=== PATIENT | female | born 1990 | race Asian ===

== ENCOUNTER 2018-04-25 03:50 | Inpatient (IN) | payer SELFPAY ==
[~2018-04-25] VITALS: Ht 160 cm; Wt 72.6 kg
[2018-04-25] MEDS: LACTATED RINGERS 1,000 ML IV SCH ×2 (05:00→13:28)
[2018-04-25] MEDS ORDERED: PREN-380 PO (05:05)
[2018-04-25] MEDS ORDERED: NALBUPHINE 10 MG/ML AMP IVP PRN (05:10)
[2018-04-25] MEDS ORDERED: PROMETHAZINE 25 MG/ML VIAL IVP PRN (05:10)
[2018-04-25] MEDS ORDERED: AMPICILLIN 2,000 MG in NACL 0.9% MINI-BAG PLUS 100 ML IV SCH (05:10)
[2018-04-25] MEDS ORDERED: METHYLERGONOVINE 0.2 MG/ML AMP IM PRN ×2 (05:10→21:25)
[2018-04-25] MEDS ORDERED: CARBOPROST 250 MCG/ML AMP IM PRN (05:10)
[2018-04-25] MEDS ORDERED: AMPICILLIN 2,000 MG VIAL ONE (05:24)
[2018-04-25 05:35] LABS: BASOPHILS % (AUTO) 0.3 % (0.0-2.0); EOSINOPHILS # (AUTO) 0.1 K/uL (0-0.4); EOSINOPHILS % (AUTO) 1.2 % (0.0-4.0); HEMATOCRIT 40.5 % (36-48); HEMOGLOBIN 13.8 g/dL (12.0-16.0); LYMPHOCYTES % (AUTO) 18.1 % (20.5-51.1); MEAN CORPUSCULAR HEMOGLOBIN 32 pg (27-31); MEAN CORPUSCULAR HGB CONC 34 g/dL (33-37); MEAN CORPUSCULAR VOLUME 93.3 fL (80-94); MONOCYTES # (AUTO) 0.9 K/uL (0.8-1.0); MONOCYTES % (AUTO) 8.3 % (1.7-9.3); NEUTROPHILS # (AUTO) 7.9 K/uL (1.8-7.7); NEUTROPHILS % (AUTO) 72.1 % (42.2-75.2); PLATELET COUNT (AUTO) 144 K/uL (140-450); RED BLOOD CELL COUNT(AUTO) 4.34 MIL/uL (4.20-5.40); RED CELL DISTRIBUTION WIDTH 14.3 % (11.6-13.7); WHITE BLOOD COUNT (AUTO) 10.9 K/uL (4.8-10.8)
[2018-04-25 06:42] LABS: ANION GAP 13.1 (8-16); CARBON DIOXIDE 22.7 mmol/L (21-32); CREATININE 0.7 mg/dL (0.6-1.3); POTASSIUM 3.8 mmol/L (3.5-5.1)
[2018-04-25 06:48] LABS: ALBUMIN 2.8 g/dL (3.4-5.0); TOTAL BILIRUBIN 0.2 mg/dL (0.0-1.0)
[2018-04-25 07:20] LABS: RAPID PLASMA REAGIN NON-REACTIVE (Non Reactiv)
--- NOTE | 2018-04-25 08:52 | NUR ---
PATIENT HAS BEEN SCREENED AND CATEGORIZED LOW NUTRITION RISK. PATIENT WILL BE SEEN WITHIN 7 DAYS OF ADMISSION. 05/01/[address]
[2018-04-25] MEDS ORDERED: OXYTOCIN 20 UNITS in LACTATED RINGERS 1,000 ML IV SCH (09:04)
[2018-04-25] MEDS ORDERED: AMPICILLIN 1,000 MG VIAL ONE ×3 (09:25→18:35)
[2018-04-25] MEDS: AMPICILLIN 1,000 MG in NACL 0.9% MINI-BAG PLUS 50 ML IV SCH ×3 (09:28→18:38)
[2018-04-25] MEDS ORDERED: NALBUPHINE 10 MG/ML AMP ONE (18:44)
[2018-04-25] MEDS ORDERED: PROMETHAZINE 25 MG/ML VIAL ONE (18:45)
[2018-04-25] MEDS ORDERED: OXYTOCIN 10 UNITS/ML VIAL ONE (20:01)
[2018-04-25] MEDS ORDERED: LIDOCAINE MPF 1% - **ER/OR** 20 ML ONE (20:17)
[2018-04-25] MEDS ORDERED: BENZOCAINE/MENTHOL 20%-0.5% 60 GM CAN TP PRN (21:25)
[2018-04-25] MEDS ORDERED: MEASLES, MUMPS, AND RUBELLA 1 VIAL SQVAC PRN (21:25)
[2018-04-25] MEDS ORDERED: IBUPROFEN 800 MG TAB PO PRN (21:25)
[2018-04-25] MEDS ORDERED: oxyCODONE/APAP 5/325 MG 1 TAB TAB PO PRN (21:25)
[2018-04-25] MEDS ORDERED: TEMAZEPAM 15 MG CAP PO PRN (21:25)
[2018-04-25] MEDS ORDERED: OXYTOCIN 10 UNITS/ML VIAL IM PRN (21:25)
[2018-04-25] MEDS ORDERED: HYDROcodone/APAP 5/325 MG 1 TAB TAB PO PRN (21:25)
[2018-04-25] MEDS ORDERED: NALOXONE 0.4 MG/ML VIAL ONE (21:46)
[2018-04-26] MEDS: BETHANECHOL 25 MG TAB PO SCH (06:00)
[2018-04-26 06:30] LABS: HEMOGLOBIN 12.1 g/dL (12.0-16.0)
[2018-04-26] MEDS ORDERED: DOCUSATE SOD/SENNA 50/8.6 MG 1 TAB PO SCH (21:00)
[2018-04-27] MEDS: BETHANECHOL 25 MG TAB PO SCH
[2018-04-27] MEDS ORDERED: IBUP-1801 PO (08:15)
== END 2018-04-27 18:10 | disposition home or self-care (01) | DRG 775 ==
LOC: MFCC 03:50
PROVIDERS: ADMIT Obstetrics & Gynecology; ATTEND Obstetrics & Gynecology
PROC: 10E0XZZ Delivery of Products of Conception, External Approach (ICD-10-PCS; principal; 2018-04-25)
PROC: 0KQM0ZZ Repair Perineum Muscle, Open Approach (ICD-10-PCS; 2018-04-25)
PROC: 10907ZC Drainage of Amniotic Fluid, Therapeutic from Products of Conception, Via Natural or Artificial Opening (ICD-10-PCS; 2018-04-25)
PROC: 3E033VJ Introduction of Other Hormone into Peripheral Vein, Percutaneous Approach (ICD-10-PCS; 2018-04-25)
PROC: 3E0234Z Introduction of Serum, Toxoid and Vaccine into Muscle, Percutaneous Approach (ICD-10-PCS; 2018-04-25)
DX: O70.1 Second degree perineal laceration during delivery (principal); Z37.0 Single live birth; Z3A.40 40 weeks gestation of pregnancy; Z23 Encounter for immunization
CPT/HCPCS: 36415; 59409; 80053; 85018; 85025; 86592; 86886; 86900; 86901; 87653-90; 90715; C1758; J0290; J2001; J2300; J2310; J2550; J2590; J7120